=== PATIENT | female | born 1935 | race Caucasian/White ===

== ENCOUNTER 2017-06-12 15:46 | Emergency (ER) | payer OTHER ==
[2017-06-12] MEDS: IV NORMAL SALINE 1000ML BAG 1,000 ML IV (16:25)
[2017-06-12 17:40] LABS: ADD MAN DIFF? NO
[2017-06-12 17:43] LABS: BASO # 0.1 x10^3/uL (0.0-0.2); BASO % 1 % (0-3); EOS # 0.2 x10^3/uL (0.0-0.7); EOS % 2 % (0-3); HEMATOCRIT 39.5 % (36.0-47.0); HEMOGLOBIN 12.8 g/dL (12.0-15.5); LYMPH # 1.5 x10^3/uL (1.0-4.8); LYMPH % 17 % (24-48); MEAN CORPUSCULAR HEMOGLOBIN 28 pg (25-35); MEAN CORPUSCULAR HGB CONC 32 g/dL (31-37); MEAN CORPUSCULAR VOLUME 87 fL (79-100); MONO % 11 % (0-9); NEUT # 6.3 x10^3uL (1.8-7.7); NEUT % 70 % (31-73); PLATELET COUNT 404 x10^3/uL (140-400); RED BLOOD COUNT 4.57 x10^6/uL (3.50-5.40); RED CELL DISTRIBUTION WIDTH 16.5 % (11.5-14.5)
[2017-06-12 18:07] LABS: ANION GAP 10 (6-14); BLOOD UREA NITROGEN 17 mg/dL (7-20); CALCIUM 9.3 mg/dL (8.5-10.1); CARBON DIOXIDE 27 mmol/L (21-32); CHLORIDE 102 mmol/L (98-107); GFR 53.1; GLUCOSE 80 mg/dL (70-99); POTASSIUM 4.7 mmol/L (3.5-5.1); SODIUM 139 mmol/L (136-145)
[2017-06-12 18:28] LABS: TROPONINI < 0.017 ng/mL (0.000-0.055)
[2017-06-12 23:18] LABS: INFLUENZA A PATIENT NEGATIVE (NEGATIVE); INFLUENZA B PATIENT NEGATIVE (NEGATIVE); OBC FLU VALID
== END 2017-06-12 21:07 | disposition home or self-care (01) ==
LOC: ER 15:46
DX: J11.1 Influenza due to unidentified influenza virus with other respiratory manifestations (principal); R53.81 Other malaise; B34.9 Viral infection, unspecified; E78.00 Pure hypercholesterolemia, unspecified; E03.9 Hypothyroidism, unspecified; K21.9 Gastro-esophageal reflux disease without esophagitis; I25.10 Atherosclerotic heart disease of native coronary artery without angina pectoris; I10 Essential (primary) hypertension; Z90.710 Acquired absence of both cervix and uterus; Z96.659 Presence of unspecified artificial knee joint; Z88.0 Allergy status to penicillin; Z88.1 Allergy status to other antibiotic agents; Z88.2 Allergy status to sulfonamides; Z88.5 Allergy status to narcotic agent; Z88.8 Allergy status to other drugs, medicaments and biological substances
CPT/HCPCS: 36415; 71045; 80048; 84484; 85025; 87804; 87804-59; 93005; 96360; 96361; 99285-25; J7030

== ENCOUNTER 2019-06-06 17:15 | Emergency (ER) | payer MEDICAID, OTHER ==
[~2019-06-06] VITALS: Ht 160 cm; Wt 80.3 kg
[~2019-06-06 17:15] MED LIST: AMIT25TA PO; EYE15DRO OP; HYDR1POW19 MC; LOSA-73 PO; LOSA1TAB25 PO; Nitrofurantoin Monohyd/M-Cryst PO; OMEP20CA16 PO; OMEP20CA5 PO; SIMV20TA18 PO
--- NOTE | 2019-06-06 17:21 | PHYS DOC ---
Past Medical History Past Medical History: Anxiety, CAD, Constipation, Depression, GERD, Glaucoma, High Cholesterol, Hypertension, Hypothyroid, Other Additional Past Medical Histor: right eye blind, OSTEOARTHRITIS, MUSCLE WEAKNESS, BACK PAIN Past Surgical History: Hysterectomy, Knee Replacement Additional Past Surgical Histo: "stent placed", artificial left eye Additional Information: nonsmoker Alcohol Use: None Drug Use: None Adult General HPI HPI Patient is an 83-year-old female with past medical history of hypertension, GERD, heart disease, and hypothyroidism is presenting to the emergency department with 2 weeks of right knee pain. Patient states that she has not fallen, had any trauma to the knee or hip. Patient has not tried any medication at home for the pain. Patient states that the pain is sharp and radiates up into her hip. Patient states that she has chronic right knee pain but it is worse now and would like to be evaluated. Denies any other complaints. Patient denies shortness of breath, chest pain, fevers, chills, nausea, vomiting, abdominal pain, constipation, diarrhea, headache, and confusion. Review of Systems Review of Systems Constitutional: Denies fever or chills Eyes: Denies redness or eye pain HENT: Denies nasal congestion or sore throat Respiratory: Denies cough or shortness of breath Cardiovascular: Denies chest pain or palpitations GI: Denies abdominal pain, nausea, or vomiting : Denies dysuria or hematuria Musculoskeletal: Denies back pain, reports right knee pain Integument: Denies rash or skin lesions Neurologic: Denies headache, focal weakness or sensory changes Complete systems were reviewed and found to be within normal limits, except as documented in this note. Allergies Allergies Allergies Coded Allergies Type Severity Reaction Last Updated Verified Penicillins Allergy Intermediate rash 12/31/15 Yes Sulfa (Sulfonamide Antibiotics) Allergy Intermediate Rash 12/31/15 Yes codeine Allergy Intermediate rash 12/31/15 Yes hydrochlorothiazide Allergy Intermediate dizziness 12/31/15 No vancomycin Allergy Intermediate patient does not remember 12/31/15 No Physical Exam Physical Exam Constitutional: Well developed, well nourished, no acute distress, non-toxic appearance HENT: Normocephalic, atraumatic, oropharynx moist Eyes: Conjunctiva normal, no discharge Neck: Normal range of motion, no tenderness, supple Cardiovascular: Heart rate normal, regular rhythm Lungs & Thorax: Bilateral breath sounds clear to auscultation, no wheezing Abdomen: Soft, no tenderness Skin: Warm, dry, no erythema, no rash Back: No tenderness, no CVA tenderness Extremities: ROM intact, no edema, tenderness to palpation of the right knee, no erythema, no signs of trauma Neurologic: Alert and oriented X 3, no focal deficits noted Psychologic: Affect normal, judgement normal, mood normal EKG EKG [] Radiology/Procedures Radiology/Procedures [] Course & Med Decision Making Course & Med Decision Making Pertinent Imaging studies reviewed. (See chart for details) Patient is an 83-year-old female has medical history of hypertension, GERD, hypothyroidism, and heart disease is presenting with 2 weeks of right knee pain. Patient was seen and evaluated at bedside. Physical exam was significant for mild tenderness to palpation of the right knee, full range of motion, no edema, no erythema. Images ordered. Dragon Disclaimer Dragon Disclaimer This electronic medical record was generated, in whole or in part, using a voice recognition dictation system. Departure Departure Impression: Primary Impression: Knee pain Additional Impressions: Hip pain Cutaneous candidiasis Disposition: 01 HOME, SELF-CARE Condition: STABLE Referrals: FRANK CRUZ MD (PCP) SANJUANA MEJIA MD Patient Instructions: Danika Infection, Adult, Hip Pain, Knee Pain, [place] Scripts Naproxen (NAPROXEN) 375 Mg Tablet 375 MG PO BID PRN for PAIN, #14 TAB Prov: NENO BOLDEN DO 06/06/19 Tramadol Hcl (TRAMADOL HCL) 50 Mg Tablet 50 MG PO Q6HRS PRN for PAIN, #14 TAB Prov: NENO BOLDEN DO 06/06/19 Nystatin (NYSTATIN) 15 Gm Cream..g. 1 EDI TP TID PRN for RASH, #30 GM Prov: NENO BOLDEN DO 06/06/19 Problem Qualifiers Primary Impression: Knee pain Chronicity: chronic Laterality: right Qualified Codes: M25.561 - Pain in right knee; G89.29 - Other chronic pain Additional Impressions: Hip pain Laterality: right Qualified Codes: M25.551 - Pain in right hip NENO BOLDEN DO Jun 06, 2019 17:21
[2019-06-06] MEDS ORDERED: NYST15CR TP (18:14)
[2019-06-06] MEDS ORDERED: NAPR-695 PO (18:14)
[2019-06-06] MEDS ORDERED: TRAM50TA PO (18:14)
--- NOTE | 2019-06-06 18:39 | RAD ---
Pelvis right hip HISTORY: Pain AP view is obtained of the pelvis as well as AP and frog leg views right hip The visualized osseous structures appear normal. There is gross osteopenia which limits sensitivity for possible nondisplaced fractures. There has been prior vertebroplasty at L4. End impression 3 views right knee: AP lateral oblique views There is marked loss of joint space in the lateral compartment with marginal spurring and eburnation. There is no interruption of cortex to suggest a fracture. IMPRESSION: Severe degenerative changes of the lateral compartment of the right knee. No acute findings. Electronically signed by: Kan Reynolds III, MD (06/06/2019 6:36 PM) [facility]
[2019-06-06 19:48] VITALS: BP 133/65
== END 2019-06-06 19:54 | disposition home or self-care (01) ==
LOC: ER 17:15
DX: M25.561 Pain in right knee (principal); M25.551 Pain in right hip; G89.29 Other chronic pain; B37.2 Candidiasis of skin and nail; I11.9 Hypertensive heart disease without heart failure; K21.9 Gastro-esophageal reflux disease without esophagitis; E03.9 Hypothyroidism, unspecified; E11.39 Type 2 diabetes mellitus with other diabetic ophthalmic complication; I25.10 Atherosclerotic heart disease of native coronary artery without angina pectoris; E78.00 Pure hypercholesterolemia, unspecified; M19.90 Unspecified osteoarthritis, unspecified site; Z88.0 Allergy status to penicillin; Z88.2 Allergy status to sulfonamides; Z88.5 Allergy status to narcotic agent; Z88.1 Allergy status to other antibiotic agents; Z88.8 Allergy status to other drugs, medicaments and biological substances
CPT/HCPCS: 73502; 73562; 99284

== ENCOUNTER 2019-12-21 04:16 | Emergency (ER) | payer MEDICARE, MEDICAID ==
[~2019-12-21] VITALS: Ht 160 cm; Wt 74.0 kg
[~2019-12-21 04:16] MED LIST changes: +NAPR-695 PO; +NYST15CR TP; +TRAM50TA PO
--- NOTE | 2019-12-21 04:49 | PHYS DOC ---
Past Medical History Past Medical History: Anxiety, CAD, Constipation, Depression, GERD, Glaucoma, High Cholesterol, Hypertension, Hypothyroid, Other Additional Past Medical Histor: right eye blind, OSTEOARTHRITIS, MUSCLE WEAKNESS, BACK PAIN Past Surgical History: Hysterectomy, Knee Replacement Additional Past Surgical Histo: "stent placed", artificial left eye Smoking Status: Former Smoker Alcohol Use: None Drug Use: None General Adult EDM: Chief Complaint: CHEST PAIN HPI: HPI: Patient is a 83 year old [female brought in by ambulance with back pain. Basically she fell at 1700 yesterday she remembers falling she was try to put her sweater on and she slipped and fell backward landing right on her upper back she said since that time she had progressive pain starting in her back and radiating around to the front feels tight painful worse with palpation and movement. She thinks she might of hit her head and her neck those are hurting as well past medical history coronary artery disease depression anxiety COVID-19 recovering in September anemia osteoarthritis chronic leg pain medications include Tylenol Pepcid Synthroid losartan tramadol buspirone Review of Systems: Review of Systems: Constitutional: Denies fever or chills. [] Eyes: Denies change in visual acuity. [] HENT: Denies nasal congestion or sore throat. [] Respiratory: Denies cough or shortness of breath. [] Cardiovascular: Denies chest pain or edema. [] GI: Denies abdominal pain, nausea, vomiting, bloody stools or diarrhea. [] : Denies dysuria. [] Musculoskeletal: Denies back pain or joint pain. [] Integument: Denies rash. [] Neurologic: Denies headache, focal weakness or sensory changes. [] Endocrine: Denies polyuria or polydipsia. [] Lymphatic: Denies swollen glands. [] Psychiatric: Denies depression or anxiety. [] Heart Score: Risk Factors: Risk Factors: DM, Current or recent (<one month) smoker, HTN, HLP, family history of CAD, obesity. Risk Scores: Score 0 - 3: 2.5% MACE over next 6 weeks - Discharge Home Score 4 - 6: 20.3% MACE over next 6 weeks - Admit for Clinical Observation Score 7 - 10: 72.7% MACE over next 6 weeks - Early Invasive Strategies Current Medications: Current Medications Medications (Trade) Dose Ordered Sig/Mariela Start Time Stop Time Status Last Admin Dose Admin Acetaminophen/ Hydrocodone Bitart (Lortab 5/325) 2 tab 1X ONCE 12/21/19 05:00 12/21/19 05:01 Aspirin (Aspirin Chewable) 324 mg 1X ONCE 12/21/19 05:00 12/21/19 04:37 DC Ondansetron HCl (Zofran Odt) 4 mg 1X ONCE 12/21/19 05:00 12/21/19 05:01 Allergies: Allergies: Allergies Coded Allergies Type Severity Reaction Last Updated Verified Penicillins Allergy Intermediate rash 12/31/15 Yes Sulfa (Sulfonamide Antibiotics) Allergy Intermediate Rash 12/31/15 Yes codeine Allergy Intermediate rash 12/31/15 Yes hydrochlorothiazide Allergy Intermediate dizziness 12/31/15 No vancomycin Allergy Intermediate patient does not remember 12/31/15 No Physical Exam: PE: Constitutional: Well developed, well nourished, no acute distress, non-toxic appearance. [] HENT: Normocephalic, atraumatic, bilateral external ears normal, oropharynx moist, no oral exudates, nose normal. [] Eyes: PERRLA, EOMI, conjunctiva normal, no discharge. [] Neck: Normal range of motion, midline and diffuse paraspinous ttp noted. Cardiovascular:Heart rate regular rhythm, no murmur [] Lungs & Thorax: Bilateral breath sounds clear to auscultation [] chest wall ttp noted. there is upper back ttp noted in the midilne. Abdomen: Bowel sounds normal, soft, no tenderness, no masses, no pulsatile masses. [] Skin: Warm, dry, no erythema, no rash. [] Back: see above. Extremities: No tenderness, no cyanosis, no clubbing, ROM intact, 1-2 plus ed luis. Neurologic: Alert and oriented X 3, normal motor function, normal sensory function, no focal deficits noted. [] Psychologic: Affect normal, judgement normal, mood normal. [] Current Patient Data: Vital Signs: Vitals are normal see nurse's note EKG: EKG: [] EKG nsr rate 74 no ischemic chagnes noted. no stemi Radiology/Procedures: Radiology/Procedures: [] Impression: FINDINGS: BRAIN PARENCHYMA: No evidence of acute intraparenchymal hemorrhage or infarct. Generalized atrophy and white matter low density compatible chronic ischemic microvascular changes present. VENTRICLES & EXTRA-AXIAL SPACES: Ventricles are within normal limits. Basilar cisterns are patent. No pathologic extra-axial fluid collection or mass. 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 SINUSES: There is a gas containing soft tissue defect in the left squamous temporal bone with ossification of the overlying dura. This could reflect postoperative change. Correlate clinically. OSSEOUS & SOFT TISSUES: Calvarium and skull base are intact. IMPRESSION: No acute intracranial pathology. Defect in the left squamous temporal bone with soft tissue and gas could reflect postoperative changes. Correlate clinically. EXAM: CT Cervical Spine without IV contrast INDICATION: Reason: trauma. / Spl. Instructions: / History: TECHNIQUE: Multi-detector row CT images were obtained through the cervical spine without the use of IV contrast. Post-processing sagittal and coronal reconstructed images were obtained for interpretation. All CT scans performed at this facility utilize dose optimization techniques as appropriate to the exam, including the following: Automated exposure control and adjustment of the mA and/or KV according to patient size (this includes techniques or standardized protocols for targeted exams where dose is indication/reason for exam). COMPARISON: None FINDINGS: CRANIOCERVICAL JUNCTION: Unremarkable. ALIGNMENT: Alignment is within normal limits. OSSEOUS: No evidence of fracture or bone destruction. DISC SPACES: Mild multilevel disc degenerative change. FACET JOINTS: Unremarkable. SPINAL CANAL: Unremarkable. NEUROFORAMINA: Unremarkable. SOFT TISSUES: Unremarkable. IMPRESSION: No acute traumatic findings in the cervical spine. Electronically signed by: Dana Obando MD (12/21/2019 5:33 AM) [facility] Course & Med Decision Making: Course & Med Decision Making I reviewed T-spine x-ray no obvious abnormality somewhat limited viewPertinent Labs and Imaging studies reviewed. (See chart for details) [] 83-year-old female brought in by ambulance with after mechanical fall with upper back pain and radiating around towards the front. It seems very much musc uloskeletal in nature, but will do some basic labs troponin imaging patient received aspirin by the paramedics will give [place] and Zofran in the emergency room C-spine CT negative head CT negative for intracranial hemorrhage. My read C- spine x-ray negative acute Dragon Disclaimer: Dragon Disclaimer: This electronic medical record was generated, in whole or in part, using a voice recognition dictation system. Departure Departure Impression: Primary Impression: Back pain Disposition: 01 HOME, SELF-CARE Condition: STABLE Referrals: FRANK CRUZ MD (PCP) Justicifation of Admission Dx: Justifications for Admission: Justification of Admission Dx: N/A OMER BROWN MD Dec 21, 2019 04:49
[2019-12-21] MEDS ORDERED: ASPIRIN CHEWABLE 81 MG TABLET. PO ONE (05:00)
[2019-12-21] MEDS ORDERED: ONDANSETRON ODT 4 MG TAB.RAPDIS. PO ONE (05:00)
[2019-12-21] MEDS ORDERED: HYDROcodone/APAP 5/325MG 1 TAB TABLET PO ONE (05:00)
[2019-12-21 05:10] LABS: BASO % 0 % (0-3); EOS # 0.3 x10^3/uL (0.0-0.7); EOS % 3 % (0-3); HEMATOCRIT 32.8 % (36.0-47.0); HEMOGLOBIN 10.4 g/dL (12.0-15.5); LYMPH % 33 % (24-48); MEAN CORPUSCULAR HEMOGLOBIN 26 pg (25-35); MEAN CORPUSCULAR HGB CONC 32 g/dL (31-37); MEAN CORPUSCULAR VOLUME 82 fL (79-100); MONO # 0.8 x10^3/uL (0.0-1.1); MONO % 8 % (0-9); NEUT % 55 % (31-73); PLATELET COUNT 404 x10^3/uL (140-400); RED BLOOD COUNT 4.01 x10^6/uL (3.50-5.40); RED CELL DISTRIBUTION WIDTH 27.2 % (11.5-14.5); WHITE BLOOD COUNT 9.1 x10^3/uL (4.0-11.0)
[2019-12-21 05:22] LABS: PROTHROMBIN TIME PATIENT 13.1 SEC (11.7-14.0)
[2019-12-21 05:24] LABS: CALCIUM 8.6 mg/dL (8.5-10.1); CREATININE 1.1 mg/dL (0.6-1.0); GFR 47.3; POTASSIUM 4.3 mmol/L (3.5-5.1)
--- NOTE | 2019-12-21 05:36 | RAD ---
EXAM: CT Head without IV contrast INDICATION: Reason: trauma. / Spl. Instructions: / History: TECHNIQUE: Multi-detector row CT images were obtained of the head without the use of IV contrast. All CT scans performed at this facility utilize dose optimization techniques as appropriate to the exam, including the following: Automated exposure control and adjustment of the mA and/or KV according to patient size (this includes techniques or standardized protocols for targeted exams where dose is indication/reason for exam). COMPARISON: None FINDINGS: BRAIN PARENCHYMA: No evidence of acute intraparenchymal hemorrhage or infarct. Generalized atrophy and white matter low density compatible chronic ischemic microvascular changes present. VENTRICLES & EXTRA-AXIAL SPACES: Ventricles are within normal limits. Basilar cisterns are patent. No pathologic extra-axial fluid collection or mass. 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 SINUSES: There is a gas containing soft tissue defect in the left squamous temporal bone with ossification of the overlying dura. This could reflect postoperative change. Correlate clinically. OSSEOUS & SOFT TISSUES: Calvarium and skull base are intact. IMPRESSION: No acute intracranial pathology. Defect in the left squamous temporal bone with soft tissue and gas could reflect postoperative changes. Correlate clinically. EXAM: CT Cervical Spine without IV contrast INDICATION: Reason: trauma. / Spl. Instructions: / History: TECHNIQUE: Multi-detector row CT images were obtained through the cervical spine without the use of IV contrast. Post-processing sagittal and coronal reconstructed images were obtained for interpretation. All CT scans performed at this facility utilize dose optimization techniques as appropriate to the exam, including the following: Automated exposure control and adjustment of the mA and/or KV according to patient size (this includes techniques or standardized protocols for targeted exams where dose is indication/reason for exam). COMPARISON: None FINDINGS: CRANIOCERVICAL JUNCTION: Unremarkable. ALIGNMENT: Alignment is within normal limits. OSSEOUS: No evidence of fracture or bone destruction. DISC SPACES: Mild multilevel disc degenerative change. FACET JOINTS: Unremarkable. SPINAL CANAL: Unremarkable. NEUROFORAMINA: Unremarkable. SOFT TISSUES: Unremarkable. IMPRESSION: No acute traumatic findings in the cervical spine. Electronically signed by: Dana Obando MD (12/21/2019 5:33 AM) [facility]
[2019-12-21 05:38] LABS: ALBUMIN 3.5 g/dL (3.4-5.0); ALBUMIN/GLOBULIN RATIO 0.9 (1.0-1.7); TOTAL BILIRUBIN 0.3 mg/dL (0.2-1.0); TOTAL PROTEIN 7.4 g/dL (6.4-8.2)
--- NOTE | 2019-12-21 06:07 | RAD ---
EXAM: PORTABLE CHEST 1V, THORACIC SPINE 3V INDICATION: Reason: cp / Spl. Instructions: / History: . TECHNIQUE: Single view COMPARISON: None FINDINGS: Heart size is upper normal size. The great vessels appear unremarkable. No hilar mass. Mediastinum shows evidence of a moderate hiatal hernia. The lungs are clear. There is no pleural effusion or pneumothorax. There are no significant osseous abnormalities. IMPRESSION: Moderate hiatal hernia. Otherwise no acute cardiopulmonary process. PROCEDURE: PORTABLE CHEST 1V, THORACIC SPINE 3V STUDY DATE: 12/21/2019 CLINICAL INDICATION / HISTORY: Reason: cp / Spl. Instructions: / History: . TECHNIQUE: Thoracic spine was examined in the AP lateral and swimmers projections. COMPARISON: Chest x-ray same day FINDINGS: The osseous structures are demineralized. There is a normal thoracic kyphosis with normal alignment of the thoracic vertebral bodies. There is preservation of the vertebral body heights but multilevel narrowing of the intervertebral disk space heights throughout the thoracic spine. No evidence of acute fracture or subluxation is identified. IMPRESSION: No acute osseous abnormality but multilevel thoracic degenerative spondylosis is present. No malalignment. Electronically signed by: Dana Obando MD (12/21/2019 6:04 AM) [facility] [place]
[2019-12-21 08:04] LABS: PLT ESTIMATE ADEQUATE (ADEQUATE)
[2019-12-21 08:37] VITALS: BP 128/68
--- NOTE | 2019-12-22 11:17 | EKG ---
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
== END 2019-12-21 08:45 | disposition home or self-care (01) ==
LOC: ER 04:16
DX: M54.6 Pain in thoracic spine (principal); G89.11 Acute pain due to trauma; R07.89 Other chest pain; R51 Headache; M54.2 Cervicalgia; K21.9 Gastro-esophageal reflux disease without esophagitis; F32.9 Major depressive disorder, single episode, unspecified; E78.00 Pure hypercholesterolemia, unspecified; E03.9 Hypothyroidism, unspecified; I10 Essential (primary) hypertension; F41.9 Anxiety disorder, unspecified; I25.10 Atherosclerotic heart disease of native coronary artery without angina pectoris; Z87.891 Personal history of nicotine dependence; Z88.0 Allergy status to penicillin; Z88.1 Allergy status to other antibiotic agents; Z88.2 Allergy status to sulfonamides; Z88.5 Allergy status to narcotic agent; Z88.8 Allergy status to other drugs, medicaments and biological substances; W01.0XXA Fall on same level from slipping, tripping and stumbling without subsequent striking against object, initial encounter; Y93.89 Activity, other specified; Y92.89 Other specified places as the place of occurrence of the external cause; Y99.8 Other external cause status
CPT/HCPCS: 36415; 70450; 71045; 72072; 72125; 80053; 83880; 84484; 85025; 85610; 93005; 99285-25

== ENCOUNTER 2020-04-16 01:53 | Emergency (ER) | payer MEDICARE, MEDICAID ==
[~2020-04-16] VITALS: Ht 165.1 cm; Wt 72.7 kg
--- NOTE | 2020-04-16 02:07 | PHYS DOC ---
Past Medical History Past Medical History: Anemia, Anxiety, CAD, Depression, GERD, High Cholesterol, Hypertension, Hypothyroid Additional Past Medical Histor: right eye blind, OSTEOARTHRITIS, MUSCLE W EAKNESS, BACK PAIN Past Surgical History: Knee Replacement Additional Past Surgical Histo: "stent placed", artificial left eye Smoking Status: Never Smoker Alcohol Use: None Drug Use: None General Adult EDM: Chief Complaint: ABDOMINAL PAIN HPI: HPI: History obtained from patient and EMS. Patient is an 84-year-old female with history of coronary artery disease and chronic right eye blindness who presents with chief complaint of buttocks pain status post fall. Patient states just prior to arrival she was attempting to ambulate from her bed to the bathroom. States she lost her balance and fell to the ground. States she landed on her buttocks. Denies striking her head or loss of consciousness. Does not take any blood thinners. States she has very mild sacral pain. Denies any chest pain or shortness breath. Denies any feelings of irregular heartbeat prior to falling. States that she does walk with the assistance of a cane at baseline. Denies any headache or neck pain. States that she remembers losing her balance and falling to the ground. States her pain is very mild at this time. Does not take any medication prior to arrival. No other complaints. Review of Systems: Review of Systems: Constitutional: Denies fever or chills. [] Eyes: Denies change in visual acuity. [] HENT: Denies nasal congestion or sore throat. [] Respiratory: Denies cough or shortness of breath. [] Cardiovascular: Denies chest pain or edema. [] GI: Denies abdominal pain, nausea, vomiting, bloody stools or diarrhea. [] : Denies dysuria. [] Musculoskeletal: Positive for fall and sacral pain Integument: Denies rash. [] Neurologic: Denies headache, focal weakness or sensory changes. [] Endocrine: Denies polyuria or polydipsia. [] Lymphatic: Denies swollen glands. [] Psychiatric: Denies depression or anxiety. [] Heart Score: Risk Factors: Risk Factors: DM, Current or recent (<one month) smoker, HTN, HLP, family history of CAD, obesity. Risk Scores: Score 0 - 3: 2.5% MACE over next 6 weeks - Discharge Home Score 4 - 6: 20.3% MACE over next 6 weeks - Admit for Clinical Observation Score 7 - 10: 72.7% MACE over next 6 weeks - Early Invasive Strategies Current Medications: Current Medications Medications (Trade) Dose Ordered Sig/Mariela Start Time Stop Time Status Last Admin Dose Admin Acetaminophen/ Hydrocodone Bitart (Lortab 5/325) 1 tab 1X ONCE 04/16/20 02:00 04/16/20 02:01 UNV Allergies: Allergies: Allergies Coded Allergies Type Severity Reaction Last Updated Verified Penicillins Allergy Intermediate rash 12/31/15 Yes Sulfa (Sulfonamide Antibiotics) Allergy Intermediate Rash 12/31/15 Yes codeine Allergy Intermediate rash 12/31/15 Yes hydrochlorothiazide Allergy Intermediate dizziness 12/31/15 No vancomycin Allergy Intermediate patient does not remember 12/31/15 No Physical Exam: PE: Physical Exam Trauma: Primary Survey: Airway: Intact. Speaks in normal voice and phonation. Breathing: Breath sounds are clear and equal bilaterally. Circulation: Regular rhythm, 2+ and symmetric radial, DP and PT pulses. Disability: GCS on arrival was 15. Pupils 3 mm, ERRL Exposure: Complete exposure obtained and described in detail below. Secondary Survey: General: Awake, alert, appropriate, and in no acute distress HENT: Atraumatic. TMs clear bilaterally, no hemotympanum. No periorbital tenderness or deformity. No obvious craniofacial trauma. Midface is stable. No apparent dental or tongue/oropharyngeal injury. No septal hematoma. Neck: C-spine: no midline tenderness. Without step-off, deformity, abrasion, ecchymosis, or other signs of trauma. Paraspinal musculature with no tenderness and/or hypertonicity. Eyes: Pupils 3 mm ERRL, EOMI grossly, no evidence of ocular trauma, conjunctivae normal Respiratory: CTAB without wheezing, rhonchi, or rales. No distress. Chest wall with no tenderness to palpation. No crepitus, ecchymosis, or flail segment present. Cardiovascular: Regular rhythm without murmurs noted. 2+ and symmetric radial, DP and PT pulses. GI: Soft, non-tender, non-distended Musculoskeletal: T-spine: no midline tenderness. Without step-off, deformity, abrasion, ecchymosis, or other signs of trauma. Paraspinal musculature with no tenderness and/or hypertonicity. L-spine: no midline tenderness. Without step-off, deformity, abrasion, ecchymosis, or other signs of trauma. Paraspinal musculature with no tenderness and/or hypertonicity. RUE: Active ROM, no obvious deformity, no gross weakness or sensory deficits, warm & well-perfused LUE: Active ROM, no obvious deformity, no gross weakness or sensory deficits, warm & well-perfused RLE: Active ROM, no obvious deformity, no gross weakness or sensory deficits, warm & well-perfused LLE: Active ROM, no obvious deformity, no gross weakness or sensory deficits, warm & well-perfused Integument: Without abrasions, contusions, or lacerations. Neurologic: GCS on arrival as noted above. No obvious focal motor or sensory deficits on examination. Gait not assessed due to acuity of trauma assessment. Current Patient Data: Vital Signs: Vital Signs Date Time Temp Pulse Resp B/P (MAP) Pulse Ox O2 Delivery O2 Flow Rate FiO2 04/16/20 02:57 94 Room Air 04/16/20 01:55 98.0 76 18 156/68 (97) 98 Room Air 98.0 EKG: EKG: [] Radiology/Procedures: Radiology/Procedures: [address] [id number] IMAGING REPORT Signed PATIENT: ESTLEITA VEGA ACCOUNT: [id number] : 1935 LOCATION: ER AGE: 84 SEX: F EXAM STATUS: REG ER ORD. PHYSICIAN: NAGA GONZALEZ DO REASON: fall, PELVIC PAIN PROCEDURE: HIP BILATERAL WITH PELVIS Study: CR HIP BILATERAL WITH PELVIS Indication: Pelvic pain. Comparison: 06/06/2019 Findings: Normal hip alignment with maintained joint spaces. Redemonstrated arthrosis across the pubic symphysis that is unchanged. Osteopenia with no appreciable fracture. Impression: 1. No acute osseous abnormality seen throughout the pelvis. 2. Osteopenia. Electronically signed by: SHERWIN GARLAND MD (04/16/2020 2:55 AM) [id number] DICTATED and SIGNED BY: SHERWIN GARLAND MD DATE: 04/16/[address] [address] IMAGING REPORT Signed PATIENT: ESTELITA VEGA ACCOUNT: [id number] : 1935 LOCATION: ER AGE: 84 SEX: F EXAM STATUS: REG ER ORD. PHYSICIAN: NAGA GONZALEZ DO REASON: fall, LOWER BACK PAIN PROCEDURE: CT LUMBAR SPINE WO CONTRAST Study: CT lumbar spine without contrast INDICATION: Fall. Lower back pain. COMPARISON: Lumbar spine radiographs 10/02/2014 TECHNIQUE: Axial CT imaging of the lumbar spine performed without the use of intravenous contrast. One or more of the following individualized dose reduction techniques were utilized for this examination: 1. Automated exposure control 2. Adjustment of the mA and/or kV according to patient size 3. Use of iterative reconstruction technique. FINDINGS: Redemonstrated augmented compression deformity of L4. The degree of height loss appears no different from the 2015 lumbar spine radiographs. Acute superior endplate compression deformity of L3 that extends through both the anterior and posterior cortices with trace dorsal cortical buckling but no significant retropulsion. Height loss of approximately 25%. Taking into consideration osteopenia, no acute fracture seen elsewhere. Grade 1 anterolisthesis of L5 on S1. No traumatic vertebral body malalignment. No osseous encroachment on the neural foramina. Central canal stenosis that is mild to moderate at the upper aspect of L4. Partially imaged hiatal hernia. It appears as if the majority of the stomach is above the diaphragm. Incompletely characterized rounded hypoattenuating focus at the lower aspect of the left kidney measuring approximately 1.8 cm. Internal density of around 30 Hounsfield units. Possible additional rounded focus at the mid right kidney where the cortex is lobulated as seen on image 37 series 2. Scattered calcific atherosclerosis. IMPRESSION: 1. Acute superior endplate compression deformity of L3 with approximately 25% height loss. Minimal dorsal cortical buckling but no significant retropulsion. No traumatic malalignment. No acute fracture seen elsewhere. 2. Chronic L4 compression deformity status post augmentation. Osteopenia. 3. Mild to moderate central canal stenosis at the upper aspect of L4. No significant neural foraminal stenosis. 4. Incompletely characterized rounded focus within the left kidney. A benign cyst is possible but the measured density is intermediate. Eventual nonemergent/outpatient renal ultrasound is recommended. 5. Partially imaged hiatal hernia. The majority of the stomach is located above the diaphragm. Electronically signed by: SHERWIN GARLAND MD (04/16/2020 3:08 AM) [id number] DICTATED and SIGNED BY: SHERWIN GARLAND MD DATE: 04/16/20 0308 [] Course & Med Decision Making: Course & Med Decision Making Pertinent Labs and Imaging studies reviewed. (See chart for details) [] Patient is a very pleasant 84-year-old female who presents with chief complaint of low back pain and buttocks pain status post mechanical fall prior to arrival. Initial vital signs unremarkable. Exam overall reassuring. No focal neurologic deficits noted. CT imaging does reveal an acute compression fracture of the L3 vertebral body with approximately 25% height loss. No signs of foraminal stenosis on imaging. Patient has no acute neurologic symptoms related to her fracture. Overall I do feel this can be managed outpatient. Pain was well controlled in the emergency department. She is minimally ambulatory at baseline. She will be given referral to neurosurgeon. Return precautions discussed and understood. Patient agreeable this plan and appropriate for discharge back to her assisted living facility. Dragon Disclaimer: Bluelock Disclaimer: This electronic medical record was generated, in whole or in part, using a voice recognition dictation system. Departure Departure Impression: Primary Impression: Compression fracture of L3 vertebra Qualified Codes: S32.030A - Wedge compression fracture of third lumbar vertebra, initial encounter for closed fracture Additional Impression: Fall Qualified Codes: W19.XXXA - Unspecified fall, initial encounter Disposition: 03 DC/TRF TO SNF Condition: STABLE Referrals: FRANK CRUZ MD (PCP) JAYA ROGER MD Patient Instructions: Back, Compression Fracture Scripts Acetaminophen (Tylenol) 325 Mg Capsule 1000 MG PO TID PRN PRN for PAIN for 7 Days, #21 CAP Prov: NAGA GONZALEZ DO 04/16/20 Lidocaine (Lidocaine PATCH ) 1 Each Adh..patch 1 EACH TP DAILY for FOR LOCAL PAIN for 5 Days, #5 PATCH REMOVE AFTER 12 HOURS. 4% Prov: NAGA GONZALEZ DO 04/16/20 NAGA GONZALEZ DO Apr 16, 2020 02:07
[2020-04-16] MEDS ORDERED: HYDROcodone/APAP 5/325MG 1 TAB TABLET PO ONE (02:15)
--- NOTE | 2020-04-16 02:58 | RAD ---
Study: CR HIP BILATERAL WITH PELVIS Indication: Pelvic pain. Comparison: 06/06/2019 Findings: Normal hip alignment with maintained joint spaces. Redemonstrated arthrosis across the pubic symphysis that is unchanged. Osteopenia with no appreciable fracture. Impression: 1. No acute osseous abnormality seen throughout the pelvis. 2. Osteopenia. Electronically signed by: SHERWIN GARLAND MD (04/16/2020 2:55 AM) [id number]
--- NOTE | 2020-04-16 03:10 | RAD ---
Study: CT lumbar spine without contrast INDICATION: Fall. Lower back pain. COMPARISON: Lumbar spine radiographs 10/02/2014 TECHNIQUE: Axial CT imaging of the lumbar spine performed without the use of intravenous contrast. One or more of the following individualized dose reduction techniques were utilized for this examination: 1. Automated exposure control 2. Adjustment of the mA and/or kV according to patient size 3. Use of iterative reconstruction technique. FINDINGS: Redemonstrated augmented compression deformity of L4. The degree of height loss appears no different from the 2015 lumbar spine radiographs. Acute superior endplate compression deformity of L3 that extends through both the anterior and posterior cortices with trace dorsal cortical buckling but no significant retropulsion. Height loss of approximately 25%. Taking into consideration osteopenia, no acute fracture seen elsewhere. Grade 1 anterolisthesis of L5 on S1. No traumatic vertebral body malalignment. No osseous encroachment on the neural foramina. Central canal stenosis that is mild to moderate at the upper aspect of L4. Partially imaged hiatal hernia. It appears as if the majority of the stomach is above the diaphragm. Incompletely characterized rounded hypoattenuating focus at the lower aspect of the left kidney measuring approximately 1.8 cm. Internal density of around 30 Hounsfield units. Possible additional rounded focus at the mid right kidney where the cortex is lobulated as seen on image 37 series 2. Scattered calcific atherosclerosis. IMPRESSION: 1. Acute superior endplate compression deformity of L3 with approximately 25% height loss. Minimal dorsal cortical buckling but no significant retropulsion. No traumatic malalignment. No acute fracture seen elsewhere. 2. Chronic L4 compression deformity status post augmentation. Osteopenia. 3. Mild to moderate central canal stenosis at the upper aspect of L4. No significant neural foraminal stenosis. 4. Incompletely characterized rounded focus within the left kidney. A benign cyst is possible but the measured density is intermediate. Eventual nonemergent/outpatient renal ultrasound is recommended. 5. Partially imaged hiatal hernia. The majority of the stomach is located above the diaphragm. Electronically signed by: SHERWIN GARLAND MD (04/16/2020 3:08 AM) [id number]
[2020-04-16] MEDS ORDERED: LIDO700A21 TP (03:22)
[2020-04-16] MEDS ORDERED: ACET325C6 PO (03:22)
[2020-04-16 04:40] VITALS: BP 150/59
== END 2020-04-16 05:20 | disposition home or self-care (01) ==
LOC: ER 01:53
DX: S32.030A Wedge compression fracture of third lumbar vertebra, initial encounter for closed fracture (principal); K21.9 Gastro-esophageal reflux disease without esophagitis; E78.00 Pure hypercholesterolemia, unspecified; I10 Essential (primary) hypertension; I25.10 Atherosclerotic heart disease of native coronary artery without angina pectoris; E03.9 Hypothyroidism, unspecified; Z95.5 Presence of coronary angioplasty implant and graft; W06.XXXA Fall from bed, initial encounter; Y93.89 Activity, other specified; Y92.89 Other specified places as the place of occurrence of the external cause; Y99.8 Other external cause status
CPT/HCPCS: 72131; 73521; 99284-25